=== PATIENT | male | born 1970 | race Two or more races ===

== ENCOUNTER 2016-08-30 22:40 | Emergency (ER) | payer SELFPAY ==
[~2016-08-30] VITALS: Ht 165.1 cm; Wt 61.2 kg
[2016-08-30 22:52] VITALS: BP 153/95
--- NOTE | 2016-08-30 23:40 | PHYS DOC ---
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 Patient states that he is visualizing bone. 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 Patient normally wears a cover over his hand. Family member states that he believes that there is bone hanging out of the hand at the third metacarpal area. The area appears to be Last with tenderness noted. Patient is able to move the first second and third finger without difficulty. Patient's tetanus immunization is unknown. There is no open wound noted. Review of Systems Review of Systems Constitutional: Denies fever or chills [] Eyes: Denies change in visual acuity, redness, or eye pain [] HENT: Denies nasal congestion or sore throat [] Respiratory: Denies cough or shortness of breath [] Cardiovascular: No additional information not addressed in HPI [] GI: Denies abdominal pain, nausea, vomiting, bloody stools or diarrhea [] : Denies dysuria or hematuria [] Musculoskeletal: Denies back pain. C/o right hand pain Integument: Denies rash or skin lesions [] Neurologic: Denies headache, focal weakness or sensory changes [] Current Medications Current Medications Current Medications Medications (Trade) Dose Ordered Sig/[facility] Start Time Stop Time Status Last Admin Dose Admin Acetaminophen/ Hydrocodone Bitart (Lortab 5/325) 1 tab 1X ONCE 08/30/16 23:45 08/30/16 23:46 DC 08/30/16 23:41 1 TAB Allergies Allergies Allergies Coded Allergies Type Severity Reaction Last Updated Verified No Known Drug Allergies 08/30/16 No Physical Exam Physical Exam Constitutional: Well developed, well nourished, no acute distress, non-toxic appearance. [] HENT: Normocephalic, atraumatic, bilateral external ears normal, oropharynx moist, no oral exudates, nose normal. [] Eyes: PERRLA, EOMI, conjunctiva normal, no discharge. [] Neck: Normal range of motion, no tenderness, supple, no stridor. [] Cardiovascular:Heart rate regular rhythm Lungs & Thorax: no respiratory distress Skin: Warm, dry, no erythema, no rash. [] Back: No tenderness Extremities: right hand tenderness, no cyanosis, no clubbing, ROM intact, no edema. Patient with tenderness noted on the right lateral part of the hand. Patient does appear to have a callus along the third metacarpal area the callus appears to have no drainage or discharge noted from the site but appears to be very tender to touch. Patient does not have the fourth and fifth finger on the right hand. Patient does however have the first second and third. He is able to move his cleaning fingers without difficulty. Neurologic: Alert and oriented X 3, normal motor function, normal sensory function, no focal deficits noted. [] Psychologic: Affect normal, judgement normal, mood normal. [] Current Patient Data Vital Signs Vital Signs Date Time Temp Pulse Resp B/P Pulse Ox O2 Delivery O2 Flow Rate FiO2 08/30/16 23:41 16 Room Air 08/30/16 22:52 98.2 87 96 98.2 EKG EKG [] Radiology/Procedures Radiology/Procedures [] Course & Med Decision Making Course & Med Decision Making Pertinent Labs and Imaging studies reviewed. (See chart for details) X-ray negative for bony abnormality. Spoke with family in regards to Ibuprofen for pain and discomfort. Hernandez for severe pain, this medication will cause drowsiness do not take if you need to be alert and oriented. Also recommended to family to place lotion around the area to help soften the area. Patient will be discharged home in stable condition. Signs and symptoms to return to the emergency department has been provided. [] Dragon Disclaimer Dragon Disclaimer This electronic medical record was generated, in whole or in part, using a voice recognition dictation system. Departure Departure Impression: Primary Impression: Contusion of right hand Disposition: HOME, SELF-CARE Condition: STABLE Referrals: NO PCP (PCP) Patient Instructions: Hand Contusion, [id number] Additional Instructions: Activity as tolerated Ibuprofen for pain and discomfort Hernandez for severe pain as this medication will cause drowsiness do not take if you need to be alert and oriented Use lotion on the callus to help soften the area Ice packs on 20 minutes and off 20 minutes several times a day Followup with primary care provider in 5-7 days Return to emergency department as needed for signs and symptoms that become worse. Scripts Hydrocodone/Apap 5-325 (Hernandez 5-325 Tablet)1 Each Tablet1 Tab PO PRN Q6HRS PRN PAIN #10 TAB Prov:DENIZ BASILIO APRN 08/31/16 DENIZ BASILIO APRN Aug 30, 2016 23:40
[2016-08-30] MEDS ORDERED: HYDROCODONE/APAP 5/325MG TABLET. PO ONE (23:45)
[2016-08-31] MEDS ORDERED: HYDR-971 PO (00:11)
--- NOTE | 2016-08-31 07:44 | RAD ---
Right hand, 3 views, 08/30/2016: History: Hand pain and injury Absence of the fifth metatarsal and the lateral finger as well as the head of the fourth metatarsal and the ring finger is presumably due to previous trauma or surgery. There is chronic-appearing deformity of the remaining portion of the fourth metatarsal. No acute fracture or dislocation is identified. IMPRESSION: 1. Amputation deformities at the fourth and fifth finger levels as described above compatible with previous trauma and/or surgery. 2. No acute bony abnormality is detected.
== END 2016-08-31 00:27 | disposition home or self-care (01) ==
LOC: ER 22:40
DX: S60.221A Contusion of right hand, initial encounter (principal); W01.198A Fall on same level from slipping, tripping and stumbling with subsequent striking against other object, initial encounter; Y93.89 Activity, other specified; Y92.89 Other specified places as the place of occurrence of the external cause; Y99.8 Other external cause status
CPT/HCPCS: 73130; 99284